=== PATIENT | female | born 1985 | race American Indian/Alaskan Native ===

== ENCOUNTER 2021-09-15 17:29 | Emergency (ER) | payer BC, MEDICAID ==
[2021-09-15 18:08] VITALS: BP 161/94
[2021-09-15 23:48] LABS: Color,Urine Yellow (Yellow)
[2021-09-15 23:49] LABS: Bilirubin,Urine Negative (Negative); Blood,Urine Moderate (Negative); Urobilinogen,Urine 0.2 mg/dL (<2.0)
[2021-09-15 23:50] LABS: Bacteria,Urine 2+ /HPF (Negative); Mucus,Urine 1+ /HPF
[2021-09-15 23:51] LABS: WBC,Urine > 182.0 /HPF (0.0-6.0)
[2021-09-16] MEDS ORDERED: SULFAMETHOXAZOLE/TRIMETHOPRIM 800/160MG DS TAB PO ONE (00:09)
[2021-09-16] MEDS ORDERED: PHENAZOPYRIDINE 200 MG TAB PO ONE (00:09)
[2021-09-16] MEDS ORDERED: ONDANSETRON 4 MG ODT TAB PO ONE (00:09)
[2021-09-16] MEDS ORDERED: IBUPROFEN 600 MG TAB PO ONE (00:09)
--- NOTE | 2021-09-16 00:48 | Emergency Department Report ---
ED Female HPI - General Chief complaint: Medical Clearance Stated complaint: PAIN WHILE URINATING Source: patient Mode of arrival: Ambulatory Limitations: No Limitations - History of Present Illness Initial comments: Patient is a 36-year-old -[place] female with a history of [id number] diabetes who presents to the ED with complaint of acute onset persistent dysuria, urinary frequency and urgency for the last 2 weeks. Patient states that she was initially evaluated at an urgent care clinic and diagnosed with urinary tract infection and was prescribed metronidazole 500 mg twice a day for 1 week. Patient states that she completed the medication but the symptoms have worsened in the last 5 days. Patient denies dizziness, syncope, chest pain, shortness of breath, fever, chills, abdominal pain, vaginal bleeding, vaginal discharge, low back pain, nausea and vomiting or diarrhea. MD Complaint: dysuria, other (Urinary frequency and urgency) -: Gradual, week(s) (2) Location: suprapubic, other (Vaginal) Radiation: non-radiating Severity: severe Severity scale (0 -10): 8 Quality: burning, aching Consistency: constant Improves with: none Worsens with: urination Are you Now?: No Last Menstrual Period: 08/19/21 EDC: 05/26/22 Associated Symptoms: denies other symptoms, abdominal pain (Suprapubic pressure), dysuria, hematuria. denies: vaginal discharge, vaginal bleeding, nausea/vomiting, fever/chills, headaches, loss of appetite, rash, seizure, shortness of breath, syncope, weakness, other - Related Data Sexually active: Yes Previous Rx's Medication Instructions Recorded Last Taken Type Fluconazole (Nf) [Diflucan TAB] 150 mg PO ONCE #1 tablet 09/16/21 Unknown Rx Ibuprofen [Motrin] 600 mg PO Q8H PRN #24 tablet 09/16/21 Unknown Rx Ondansetron [Zofran Odt] 4 mg PO Q8HR PRN #15 tab.rapdis 09/16/21 Unknown Rx Sulfamethoxazole/Trimethoprim 1 each PO Q12H #20 tab 09/16/21 Unknown Rx [Bactrim DS TAB] Allergies Allergy/AdvReac Type Severity Reaction Status Date / Time No Known Allergies Allergy Verified 09/15/21 18:08 ED Review of Systems ROS: Stated complaint: PAIN WHILE URINATING Other details as noted in HPI Constitutional: denies: chills, fever Eyes: denies: eye pain, eye discharge, vision change ENT: denies: ear pain, throat pain Respiratory: denies: cough, shortness of breath, wheezing Cardiovascular: denies: chest pain, palpitations Endocrine: no symptoms reported Gastrointestinal: denies: abdominal pain, nausea, diarrhea Genitourinary: urgency, dysuria, frequency, hematuria. denies: discharge, abnormal menses, dyspareunia Musculoskeletal: denies: back pain, joint swelling, arthralgia Skin: denies: rash, lesions Neurological: denies: headache, weakness, paresthesias Psychiatric: denies: anxiety, depression Hematological/Lymphatic: denies: easy bleeding, easy bruising ED Past Medical Hx - Medications Home Medications: Home Medications Medication Instructions Recorded Confirmed Last Taken Type Fluconazole (Nf) [Diflucan TAB] 150 mg PO ONCE #1 tablet 09/16/21 Unknown Rx Ibuprofen [Motrin] 600 mg PO Q8H PRN #24 tablet 09/16/21 Unknown Rx Ondansetron [Zofran Odt] 4 mg PO Q8HR PRN #15 tab.rapdis 09/16/21 Unknown Rx Sulfamethoxazole/Trimethoprim 1 each PO Q12H #20 tab 09/16/21 Unknown Rx [Bactrim DS TAB] ED Physical Exam - General Limitations: No Limitations General appearance: alert, in no apparent distress - Head Head exam: Present: atraumatic, normocephalic, normal inspection - Eye Eye exam: Present: normal appearance, PERRL, EOMI Pupils: Present: normal accommodation - ENT ENT exam: Present: normal exam, normal orophraynx, mucous membranes moist, TM's normal bilaterally, normal external ear exam - Neck Neck exam: Present: normal inspection, full ROM. Absent: tenderness - Respiratory Respiratory exam: Present: normal lung sounds bilaterally. Absent: respiratory distress, wheezes, rales, rhonchi, chest wall tenderness, accessory muscle use, decreased breath sounds, prolonged expiratory - Cardiovascular Cardiovascular Exam: Present: regular rate, normal rhythm, normal heart sounds. Absent: systolic murmur, diastolic murmur, rubs, gallop - GI/Abdominal GI/Abdominal exam: Present: soft, normal bowel sounds. Absent: tenderness, guarding, rebound, hyperactive bowel sounds, hypoactive bowel sounds, organomegaly - Bi-manual exam: Present: other (Pelvic exam deferred at this time) - Extremities Exam Extremities exam: Present: normal inspection, full ROM, normal capillary refill. Absent: tenderness, pedal edema, joint swelling, calf tenderness - Back Exam Back exam: Present: normal inspection, full ROM. Absent: tenderness, CVA tenderness (R), CVA tenderness (L), muscle spasm, paraspinal tenderness, vertebral tenderness - Neurological Exam Neurological exam: Present: alert, oriented X3, CN II-XII intact, normal gait, reflexes normal - Psychiatric Psychiatric exam: Present: normal affect, normal mood - Skin Skin exam: Present: warm, dry, intact, normal color. Absent: rash ED Course Vital Signs 09/15/21 18:05 Temperature 98.8 F Pulse Rate 93 H Respiratory 16 Rate Blood Pressure 161/94 [Right] O2 Sat by Pulse 99 Oximetry ED Medical Decision Making - Medical Decision Making This is a 36-year-old -[place] female with a history of [id number] diabetes who presents to the ED with complaint of acute onset persistent dysuria, urinary frequency and urgency for the last 2 weeks. Patient states that she was initially evaluated at an urgent care clinic and diagnosed with urinary tract infection and was prescribed metronidazole 500 mg twice a day for 1 week. Patient states that she completed the medication but the symptoms have worsened in the last 5 days. In the ED, patient is alert and oriented x3 and is not in any distress. Urinalysis showed significant urinary tract infection with hematuria. Patient was therefore treated in the ED initially with oral antibiotics and pain medication and was discharged home on the same and advised to follow-up with her primary care physician in 7 to 10 days for reevaluation. Patient advised to return to the ED immediately if symptoms get worse. - Differential Diagnosis UTI; dysuria; STD; ; Critical care attestation.: If time is entered above; I have spent that time in minutes in the direct care of this critically ill patient, excluding procedure time. ED Disposition Clinical Impression: Acute urinary tract infection, Hematuria due to acute cystitis Disposition: HOME / SELF CARE / HOMELESS Is pt being admited?: No Does the pt Need Aspirin: No Condition: Stable Instructions: Urinary Tract Infection, Adult, [id number] Additional Instructions: Urinalysis showed significant urinary tract infection with hematuria. Therefore you are symptoms are likely due to acute urinary tract infection. Take medication with food, drink plenty of fluids, follow-up with your primary care physician in 7 to 10 days for reevaluation. Return to the ED immediately if symptoms get worse. Prescriptions: Sulfamethoxazole/Trimethoprim [Bactrim DS TAB] 1 each PO Q12H #20 tab Fluconazole (Nf) [Diflucan TAB] 150 mg PO ONCE #1 tablet Ibuprofen [Motrin] 600 mg PO Q8H PRN #24 tablet PRN Reason: Pain Ondansetron [Zofran Odt] 4 mg PO Q8HR PRN #15 tab.rapdis PRN Reason: Nausea Referrals: XI MACIAS MD [Primary Care Provider] - 7-10 days Time of Disposition: 00:49 Print Language: LITHUANIAN
== END 2021-09-16 01:50 | disposition home or self-care (01) ==
LOC: EDSEX → ED 17:29
DX: N39.0 Urinary tract infection, site not specified (principal)
CPT/HCPCS: 81001; 99283; J3490; Q0162